=== PATIENT | male | born 1955 | race Caucasian/White ===

== ENCOUNTER 2016-07-11 14:52 | Outpatient (CLI) | payer OTHER ==
[~2016-07-11] VITALS: Ht 175.3 cm; Wt 78.2 kg
[2016-07-11 14:53] VITALS: BP 139/83; PULSE 63; RESP 18; Ht 175.3 cm; Wt 78.2 kg
[2016-07-11] MEDS ORDERED: ERGO500037 PO (15:03)
[2016-07-11] MEDS ORDERED: HC20CR25 TOP (15:03)
[2016-07-11] MEDS ORDERED: COLC0.6T6 PO (15:03)
[2016-07-11] MEDS ORDERED: IBUP-1542 PO (15:03)
[2016-07-11] MEDS ORDERED: PRED5 PO (15:03)
[2016-07-11] MEDS ORDERED: LOSA100T7 PO (15:03)
[2016-07-11] MEDS ORDERED: CYCL5TAB PO (15:03)
[2016-07-11] MEDS ORDERED: METF500T4 PO (15:03)
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
== END 2016-07-11 17:10 | disposition home or self-care (01) ==
LOC: HPC 14:52
PROVIDERS: ATTEND Transplant Surgery
DX: M35.2 Behcet's disease (principal); I10 Essential (primary) hypertension; E55.9 Vitamin D deficiency, unspecified
CPT/HCPCS: G0463